=== PATIENT | female | born 1965 | race Caucasian/White ===

== ENCOUNTER 2023-07-20 17:38 | Emergency (ER) | payer OTHER ==
[~2023-07-20] VITALS: Ht 170.2 cm; Wt 90.9 kg
[2023-07-20] MEDS: ondansetron 4mg rapidly disintigrating tab PO ONE (21:00)
[2023-07-20] MEDS: morphine 2 MG/ML inj. syringe IV ONE (21:24)
[2023-07-20] MEDS: morphine 2 MG/ML inj. syringe IM ONE (21:26)
[2023-07-20] MEDS: oxyCODONE/APAP 5-325mg tablet PO ONE (21:26)
[2023-07-20] MEDS ORDERED: OXYC-145 PO (21:49)
[2023-07-20 22:07] VITALS: BP 163/85; PULSE 80; RESP 16; TEMP 98; O2SAT 95
== END 2023-07-20 22:10 | disposition home or self-care (01) ==
LOC: ER 17:39
DX: S20.212A Contusion of left front wall of thorax, initial encounter (principal); E78.00 Pure hypercholesterolemia, unspecified; Z79.899 Other long term (current) drug therapy; W19.XXXA Unspecified fall, initial encounter; Y93.89 Activity, other specified; Y92.89 Other specified places as the place of occurrence of the external cause; Y99.8 Other external cause status
CPT/HCPCS: 71101; 96374; 99284; J2270